=== PATIENT | female | born 1990 | race Caucasian/White ===

== ENCOUNTER 2016-05-26 11:40 | Inpatient (IN) | payer OTHER ==
[~2016-05-26] VITALS: Ht 165.1 cm; Wt 95.4 kg
[~2016-05-26 11:40] MED LIST: ALBUTEROL SULF8.5 GM IH; ANTACID500 MG PO; ATIVAN0.5 MG PO; ATIVAN1 MG PO; BENADRYL ALLERG25 MG PO; BENADRYL50 MG PO; BENZONATATE100 MG PO; CLOTRIMAZOLE15 GM TP; COGENTIN0.5 MG PO; EFFEXOR XR75 MG PO; EFFEXOR75 MG PO; ESKALITH PO; FLONASE16 G1 BOTH NARES; FLOVENT 11120 INHALA IH; HYDROCODON-ACE1 EAC7 PO; HYDROXYZINE PAM25 MG PO; IBUPROFEN800 MG PO; Inderal PO; KEFLEX500 MG PO; LAMICTAL100 MG PO; LAMICTAL200 MG PO; LAMOTRIGINE100 MG PO; LAMOTRIGINE150 MG PO; LAMOTRIGINE200 MG PO; LITHIUM CARBON450 MG PO; LaMICtal PO; MEDI PO; MELATONIN3 MG PO; MULTIVITAMIN1 EAC2 PO; Melatonin PO; Motrin PO; NUVARING VAGIN1 EACH VG; OMEPRAZOLE40 M1 PO; PAIN & FEVER325 MG PO; PANTOPRAZOLE SO40 MG PO; RANITIDINE HCL150 MG PO; RELPAX20 MG PO; RENOVA 0.02% CR40 GM TP; RISPERDAL0.5 MG PO; RISPERDAL2 MG PO; RISPERDAL3 MG PO; RISPERDAL4 MG PO; RISPERIDONE1 MG PO; SEROQUEL100 MG PO; SEROQUEL200 MG PO; SIMPLY SLEEP PO; VENLAFAXINE HCL75 MG PO; VENLAFAXINE225 MG PO; VENTOLIN HFA18 GM IH; ZANTAC150 M1 PO; Zantac PO; risperDAL PO
[2016-05-26 12:22] LABS: HEMATOCRIT 39.7 % (36.0-46.0); MCH 28.8 PG (29.0-34.0); MCHC 32.2 G/DL (30.0-36.0); MCV 89.2 FL (83-99); MEAN PLAT.VOLUME 8.9 uM^3 (9.5-12.4); PLATELET COUNT 243 K/uL (156-360); RBC DIS.WIDTH-SD 41.7 % (39-53); RED BLOOD COUNT 4.45 M/uL (3.80-5.20); WHITE BLOOD COUNT 5.1 K/uL (4.1-10.2)
[2016-05-26 12:37] LABS: CHLORIDE 108 mEq/L (99-109); SODIUM 141 mEq/L (136-147)
[2016-05-26 12:39] LABS: GLUCOSE 97 mg/dL (70-99)
[2016-05-26 12:40] LABS: ANION GAP 6 MEQ/L (2-14)
[2016-05-26 12:42] LABS: GFR ESTIMATE (CALCULATED) > 59 mL/min/; SERUM ETHYL ALCOHOL < 10 mg/dL
[2016-05-26 12:43] LABS: UREA NITROGEN (BUN) 10 mg/dL (9-23)
[2016-05-26 13:44] LABS: AMPHETAMINE NEGATIVE (500 ng/mL); BARBITURATES NEGATIVE (200 ng/mL); BENZODIAZEPINES PRESUMPTIVE POSITIVE (150 ng/mL); COCAINE NEGATIVE (150 ng/mL); INTERNAL CONTROLS VALID? YES; METHADONE NEGATIVE (200 ng/mL); METHAMPHETAMINE NEGATIVE (500 ng/mL); OPIATES (MORPHINE) NEGATIVE (100 ng/mL); OXYCODONE NEGATIVE (100 ng/mL); PHENCYCLIDINE NEGATIVE (25 ng/mL); PROPOXYPHENE NEGATIVE (300 ng/mL); THC CANNABINOIDS NEGATIVE (50 ng/mL); TRICYCLIC ANTIDEPRESSANTS PRESUMPTIVE POSITIVE (300 ng/mL)
[2016-05-26 13:45] LABS: ADD MEDTOX COMMENT Y
[2016-05-26 15:49] LABS: BENZODIAZEPINES QUANT VALUE 0 NG/ML
[2016-05-26 15:51] LABS: BENZODIAZEPINES, URINE SCREEN Negative (200 ng/mL)
[2016-05-26] MEDS ORDERED: OMEPRAZOLE40 M1 PO (16:13)
[2016-05-26] MEDS ORDERED: ATIVAN0.5 MG PO (16:14)
[2016-05-26] MEDS ORDERED: LORAZEPAM0.5 MG PO (16:15)
[2016-05-26] MEDS ORDERED: LITHIUM CARBON300 M2 PO (16:16)
[2016-05-26] MEDS ORDERED: TRETINOIN20 GM TP (16:24)
[2016-05-26] MEDS ORDERED: TUMS500 MG PO (16:29)
[2016-05-26] MEDS ORDERED: DOXYCYCLINE HYC50 MG PO (16:31)
[2016-05-26] MEDS ORDERED: LITHIUM CARBON450 MG PO (16:32)
[2016-05-26 16:34] VITALS: BP 160/103
[2016-05-26] MEDS ORDERED: DEPAKOTE500 MG PO (16:36)
[2016-05-26] MEDS ORDERED: NASACORT10.8 ML BOTH NARES (16:37)
[2016-05-26 16:39] VITALS: BP 160/103
[2016-05-26] MEDS ORDERED: BIOTIN1000 MCG PO (16:41)
[2016-05-26] MEDS ORDERED: VENTOLIN HFA18 GM IH (16:42)
[2016-05-27 08:09] VITALS: BP 120/79
[2016-05-27 15:04] VITALS: BP 128/89
[2016-05-28 07:39] VITALS: BP 121/70
[2016-05-28 15:34] VITALS: BP 138/88
[2016-05-29 08:05] VITALS: BP 127/76
[2016-05-29 15:08] VITALS: BP 138/107
[2016-05-30 07:40] VITALS: BP 127/79
[2016-05-30] MEDS ORDERED: QUETIAPINE FUMA50 MG PO (11:35)
== END 2016-05-30 14:30 | disposition home or self-care (01) | DRG 885 ==
LOC: EME 11:40 → 1WEST 13:20 → EDOF 13:20 → 1WEST 16:28
PROVIDERS: Emergency Medicine
DX: F31.9 Bipolar disorder, unspecified (principal); F60.3 Borderline personality disorder; S70.312A Abrasion, left thigh, initial encounter; X78.8XXA Intentional self-harm by other sharp object, initial encounter; Y92.199 Unspecified place in other specified residential institution as the place of occurrence of the external cause; K21.9 Gastro-esophageal reflux disease without esophagitis; J45.909 Unspecified asthma, uncomplicated; E66.9 Obesity, unspecified
CPT/HCPCS: 80048; 84999; 85027; 90837; 94640; 94640 76; 97150 GO; 97165 GO; 99202; 99281; 99285; G0480

== ENCOUNTER 2016-10-12 12:53 | Emergency (ER) | payer OTHER ==
[~2016-10-12] VITALS: Ht 157.5 cm; Wt 106.5 kg
[~2016-10-12 12:53] MED LIST changes: +BIOTIN1000 MCG PO; +DEPAKOTE500 MG PO; +DOXYCYCLINE HYC50 MG PO; +LITHIUM CARBON300 M2 PO; +LORAZEPAM0.5 MG PO; +NASACORT10.8 ML BOTH NARES; +QUETIAPINE FUMA50 MG PO; +TRETINOIN20 GM TP; +TUMS500 MG PO
[2016-10-12 14:31] LABS: ADD MEDTOX COMMENT Y; AMPHETAMINE NEGATIVE (500 ng/mL); BARBITURATES NEGATIVE (200 ng/mL); BENZODIAZEPINES PRESUMPTIVE POSITIVE (150 ng/mL); COCAINE NEGATIVE (150 ng/mL); INTERNAL CONTROLS VALID? YES; METHADONE NEGATIVE (200 ng/mL); METHAMPHETAMINE NEGATIVE (500 ng/mL); OPIATES (MORPHINE) NEGATIVE (100 ng/mL); OXYCODONE NEGATIVE (100 ng/mL); PHENCYCLIDINE NEGATIVE (25 ng/mL); PROPOXYPHENE NEGATIVE (300 ng/mL); THC CANNABINOIDS NEGATIVE (50 ng/mL); TRICYCLIC ANTIDEPRESSANTS NEGATIVE (300 ng/mL)
[2016-10-12 15:12] LABS: BENZODIAZEPINES QUANT VALUE 0 NG/ML; BENZODIAZEPINES, URINE SCREEN Negative (200 ng/mL)
[2016-10-12 16:39] VITALS: BP 141/89
== END 2016-10-12 16:59 | disposition home or self-care (01) ==
LOC: EME 12:53
PROVIDERS: Emergency Medicine
DX: F31.30 Bipolar disorder, current episode depressed, mild or moderate severity, unspecified (principal); K21.9 Gastro-esophageal reflux disease without esophagitis
CPT/HCPCS: 84999; 90837; 99281; 99285; G0480

== ENCOUNTER 2017-01-15 18:13 | Inpatient (IN) | payer OTHER ==
[~2017-01-15] VITALS: Ht 165.1 cm; Wt 110.1 kg
[2017-01-15 21:42] LABS: HEMATOCRIT 37.1 % (36.0-46.0); MCH 28.2 PG (29.0-34.0); MCHC 31.5 G/DL (30.0-36.0); MCV 89.4 FL (83-99); MEAN PLAT.VOLUME 8.5 uM^3 (9.5-12.4); PLATELET COUNT 281 K/uL (156-360); RBC DIS.WIDTH-SD 42.4 % (39-53); RED BLOOD COUNT 4.15 M/uL (3.80-5.20); WHITE BLOOD COUNT 9.1 K/uL (4.1-10.2)
[2017-01-15 21:53] LABS: CHLORIDE 103 mEq/L (99-109); POTASSIUM 3.8 mEq/L (3.7-5.4); SODIUM 138 mEq/L (136-147)
[2017-01-15 21:54] LABS: GLUCOSE 121 mg/dL (70-99)
[2017-01-15 21:56] LABS: ANION GAP 13 MEQ/L (2-14)
[2017-01-15 21:57] LABS: SERUM ETHYL ALCOHOL < 10 mg/dL
[2017-01-15 21:58] LABS: GFR ESTIMATE (CALCULATED) > 59 mL/min/
[2017-01-15 22:00] LABS: UREA NITROGEN (BUN) 8 mg/dL (9-23)
[2017-01-15 22:01] LABS: SALICYLATE < 5.0 MG/DL (15-30)
[2017-01-15 22:51] LABS: AMPHETAMINE NEGATIVE (500 ng/mL); BARBITURATES NEGATIVE (200 ng/mL); BENZODIAZEPINES PRESUMPTIVE POSITIVE (150 ng/mL); COCAINE NEGATIVE (150 ng/mL); INTERNAL CONTROLS VALID? YES; METHADONE NEGATIVE (200 ng/mL); METHAMPHETAMINE NEGATIVE (500 ng/mL); OPIATES (MORPHINE) NEGATIVE (100 ng/mL); OXYCODONE NEGATIVE (100 ng/mL); PHENCYCLIDINE NEGATIVE (25 ng/mL); PROPOXYPHENE NEGATIVE (300 ng/mL); THC CANNABINOIDS NEGATIVE (50 ng/mL); TRICYCLIC ANTIDEPRESSANTS NEGATIVE (300 ng/mL)
[2017-01-15 22:52] LABS: ADD MEDTOX COMMENT Y
[2017-01-16 00:23] LABS: QUANTITATIVE HCG < 4.0 MIU/ML
[2017-01-16 03:28] LABS: BENZODIAZEPINES QUANT VALUE 0 NG/ML; BENZODIAZEPINES, URINE SCREEN Negative (200 ng/mL)
[2017-01-16 04:09] VITALS: BP 171/118
[2017-01-16 08:02] VITALS: BP 173/109
[2017-01-16 11:41] VITALS: BP 164/98
[2017-01-16 15:48] VITALS: BP 165/115
[2017-01-17 07:43] VITALS: BP 125/78
[2017-01-17] MEDS ORDERED: INDERAL20 MG PO (09:18)
[2017-01-17] MEDS ORDERED: QUETIAPINE FUM300 MG PO (09:18)
== END 2017-01-17 11:10 | disposition home or self-care (01) | DRG 885 ==
LOC: EME 18:13 → EDOF 01-16 00:24 → 1WEST 01-16 00:24 → ENRESERV 01-16 03:49 → 1WEST 01-16 04:00
PROVIDERS: Emergency Medicine
DX: F31.9 Bipolar disorder, unspecified (principal); R45.851 Suicidal ideations; K21.9 Gastro-esophageal reflux disease without esophagitis; E66.01 Morbid (severe) obesity due to excess calories; R41.83 Borderline intellectual functioning; Z68.41 Body mass index [BMI] 40.0-44.9, adult; F60.9 Personality disorder, unspecified
CPT/HCPCS: 80048; 80164; 80178; 84702; 84999; 85027; 90839; 94640; 94640 76; 99202; 99281; 99285; G0480; J2405

== ENCOUNTER 2017-02-10 14:37 | Emergency (ER) | payer OTHER ==
[~2017-02-10] VITALS: Ht 165.1 cm; Wt 107.4 kg
[~2017-02-10 14:37] MED LIST changes: +DIMENHYDRINATE50 MG PO; +INDERAL20 MG PO; -LORAZEPAM0.5 MG PO; +PEPCID AC10 MG PO; +QUETIAPINE FUM300 MG PO; +VENLAFAXINE HCL75 M3 PO
[2017-02-10 16:41] VITALS: BP 132/76
== END 2017-02-10 16:42 | disposition home or self-care (01) ==
LOC: EME 14:37
DX: K59.00 Constipation, unspecified (principal); R11.2 Nausea with vomiting, unspecified; R35.0 Frequency of micturition; R82.99 Other abnormal findings in urine; Z98.51 Tubal ligation status; J45.909 Unspecified asthma, uncomplicated
CPT/HCPCS: 74020; 99281; 99284

== ENCOUNTER 2017-02-16 15:06 | Inpatient (IN) | payer OTHER ==
[~2017-02-16] VITALS: Ht 157.5 cm; Wt 106.1 kg
[2017-02-16 15:51] LABS: MCH 27.9 PG (29.0-34.0); MCHC 31.3 G/DL (30.0-36.0); MEAN PLAT.VOLUME 8.9 uM^3 (9.5-12.4); PLATELET COUNT 294 K/uL (156-360); RBC DIS.WIDTH-CV 12.3 % (11.8-14.6); RBC DIS.WIDTH-SD 39.9 % (39-53); RED BLOOD COUNT 4.27 M/uL (3.80-5.20); WHITE BLOOD COUNT 8.1 K/uL (4.1-10.2)
[2017-02-16 16:00] LABS: CHLORIDE 106 mEq/L (99-109); POTASSIUM 3.8 mEq/L (3.7-5.4); SODIUM 140 mEq/L (136-147)
[2017-02-16 16:03] LABS: GLUCOSE 89 mg/dL (70-99)
[2017-02-16 16:04] LABS: ANION GAP 9 MEQ/L (2-14); TOTAL BILIRUBIN 0.2 mg/dL (0.0-1.0)
[2017-02-16 16:06] LABS: GFR ESTIMATE (CALCULATED) > 59 mL/min/
[2017-02-16 16:07] LABS: ALKALINE PHOSPHATASE 56 IU/L (3-129)
[2017-02-16 16:08] LABS: UREA NITROGEN (BUN) 10 mg/dL (9-23)
[2017-02-16 16:10] LABS: SALICYLATE < 5.0 MG/DL (15-30)
[2017-02-16 16:16] LABS: QUANTITATIVE HCG < 4.0 MIU/ML
[2017-02-16 17:54] LABS: AMPHETAMINE NEGATIVE (500 ng/mL); BARBITURATES NEGATIVE (200 ng/mL); BENZODIAZEPINES PRESUMPTIVE POSITIVE (150 ng/mL); COCAINE NEGATIVE (150 ng/mL); INTERNAL CONTROLS VALID? YES; METHADONE NEGATIVE (200 ng/mL); METHAMPHETAMINE NEGATIVE (500 ng/mL); OPIATES (MORPHINE) NEGATIVE (100 ng/mL); OXYCODONE NEGATIVE (100 ng/mL); PHENCYCLIDINE NEGATIVE (25 ng/mL); PROPOXYPHENE NEGATIVE (300 ng/mL); THC CANNABINOIDS NEGATIVE (50 ng/mL); TRICYCLIC ANTIDEPRESSANTS NEGATIVE (300 ng/mL)
[2017-02-16 17:55] LABS: ADD MEDTOX COMMENT Y
[2017-02-16 18:19] LABS: BENZODIAZEPINES QUANT VALUE 0 NG/ML; BENZODIAZEPINES, URINE SCREEN Negative (200 ng/mL)
[2017-02-16 19:55] VITALS: BP 123/64
[2017-02-16] MEDS ORDERED: INDERAL40 MG PO (22:17)
[2017-02-16] MEDS ORDERED: LITHIUM CARBON450 MG PO (22:19)
[2017-02-16] MEDS ORDERED: RISPERDAL4 MG PO (22:21)
[2017-02-16] MEDS ORDERED: EFFEXOR XR75 MG PO (22:22)
[2017-02-16] MEDS ORDERED: BENZTROPINE ME0.5 MG PO (22:26)
[2017-02-16] MEDS ORDERED: ATIVAN1 MG PO (22:27)
[2017-02-16] MEDS ORDERED: VYVANSE20 MG PO (22:29)
[2017-02-16] MEDS ORDERED: SEROQUEL200 MG PO (22:30)
[2017-02-16] MEDS ORDERED: DELSYM30 MG/5 M1 PO (22:32)
[2017-02-16] MEDS ORDERED: VENTOLIN HFA18 GM IH (22:34)
[2017-02-16] MEDS ORDERED: OMEPRAZOLE40 M1 PO (22:35)
[2017-02-16] MEDS ORDERED: NASACORT10.8 ML BOTH NARES (22:36)
[2017-02-16] MEDS ORDERED: FLOVENT DISKUS1 DISK IH (22:38)
[2017-02-16] MEDS ORDERED: BIOTIN1000 MCG PO (22:38)
[2017-02-16] MEDS ORDERED: ONCE DAILY1 EACH PO (22:40)
[2017-02-16] MEDS ORDERED: AVITA20 GM TP (22:42)
[2017-02-16] MEDS ORDERED: PEPCID AC10 MG PO (22:43)
[2017-02-16] MEDS ORDERED: ACETAMINOPHEN325 M1 PO (22:44)
[2017-02-16] MEDS ORDERED: TUMS500 MG PO (22:45)
[2017-02-16] MEDS ORDERED: DIMENHYDRINATE50 MG PO (22:46)
[2017-02-16 23:54] VITALS: BP 135/79
[2017-02-17 03:40] VITALS: BP 130/81
[2017-02-17 06:43] LABS: HEMATOCRIT 39.1 % (36.0-46.0); MCH 27.4 PG (29.0-34.0); MCHC 30.4 G/DL (30.0-36.0); MCV 89.9 FL (83-99); MEAN PLAT.VOLUME 8.9 uM^3 (9.5-12.4); PLATELET COUNT 288 K/uL (156-360); RBC DIS.WIDTH-CV 12.3 % (11.8-14.6); RBC DIS.WIDTH-SD 40.5 % (39-53); RED BLOOD COUNT 4.35 M/uL (3.80-5.20); WHITE BLOOD COUNT 6.8 K/uL (4.1-10.2)
[2017-02-17 07:05] LABS: ANION GAP 8 MEQ/L (2-14); CHLORIDE 108 MEQ/L (99-109); GFR ESTIMATE (CALCULATED) > 59 mL/min/; GLUCOSE 86 mg/dL (70-99); POTASSIUM 4.6 MEQ/L (3.7-5.4); SAMPLE HEMOLYSIS CHECK 0; SAMPLE ICTERIC CHECK 0; SAMPLE LIPEMIA CHECK 0; SODIUM 143 MEQ/L (136-147); UREA NITROGEN (BUN) 11 mg/dL (9-23)
[2017-02-17 08:00] VITALS: BP 172/101
[2017-02-17 09:00] VITALS: BP 152/94
[2017-02-17] MEDS ORDERED: LITHIUM CARBON300 M2 PO (16:37)
[2017-02-17] MEDS ORDERED: DEPAKOTE500 MG PO (16:37)
[2017-02-17 17:04] VITALS: BP 158/92
[2017-02-17] MEDS ORDERED: EFFEXOR XR75 MG PO (17:54)
[2017-02-18 08:13] VITALS: BP 163/98
[2017-02-18 15:54] VITALS: BP 139/96
[2017-02-18 23:29] VITALS: BP 120/67
[2017-02-19 08:10] VITALS: BP 159/101
[2017-02-19 16:04] VITALS: BP 161/96
[2017-02-19 23:58] VITALS: BP 130/69
[2017-02-20 08:34] VITALS: BP 150/80
== END 2017-02-20 17:29 | disposition home or self-care (01) | DRG 394 ==
LOC: EME 15:06 → ENRESERV 18:25 → 3EAST 18:35 → 2SOUTH 18:35 → 3EAST 19:03
PROVIDERS: Hospitalist; Physician Assistant
PROC: 0DJ08ZZ Inspection of Upper Intestinal Tract, Via Natural or Artificial Opening Endoscopic (ICD-10-PCS; principal; 2017-02-16)
DX: T18.2XXA Foreign body in stomach, initial encounter (principal); R45.851 Suicidal ideations; F31.9 Bipolar disorder, unspecified; Z68.41 Body mass index [BMI] 40.0-44.9, adult; F60.3 Borderline personality disorder; F79 Unspecified intellectual disabilities; K21.9 Gastro-esophageal reflux disease without esophagitis; E66.9 Obesity, unspecified; F41.9 Anxiety disorder, unspecified; G43.909 Migraine, unspecified, not intractable, without status migrainosus; J45.909 Unspecified asthma, uncomplicated; Z98.51 Tubal ligation status; Z81.8 Family history of other mental and behavioral disorders
CPT/HCPCS: 74000; 80048; 80053; 84702; 84999; 85027; 99281; 99285; G0480; J0330; J0360; J1650; J2405; J3010; S0028

== ENCOUNTER 2017-03-20 12:27 | Inpatient (IN) | payer OTHER ==
[~2017-03-20] VITALS: Ht 165.1 cm; Wt 107.5 kg
[~2017-03-20 12:27] MED LIST changes: +ACETAMINOPHEN325 M1 PO; +AVITA20 GM TP; +BENZTROPINE ME0.5 MG PO; +DELSYM30 MG/5 M1 PO; +FLOVENT DISKUS1 DISK IH; +INDERAL40 MG PO; +ONCE DAILY1 EACH PO; +VYVANSE20 MG PO
[2017-03-20 13:08] LABS: HEMATOCRIT 38.7 % (36.0-46.0); MCH 27.8 PG (29.0-34.0); MCHC 31.3 G/DL (30.0-36.0); MEAN PLAT.VOLUME 8.9 uM^3 (9.5-12.4); PLATELET COUNT 343 K/uL (156-360); RBC DIS.WIDTH-SD 42.4 % (39-53); RED BLOOD COUNT 4.35 M/uL (3.80-5.20); WHITE BLOOD COUNT 8.7 K/uL (4.1-10.2)
[2017-03-20 13:20] LABS: CHLORIDE 108 mEq/L (99-109); POTASSIUM 4.3 mEq/L (3.7-5.4); SODIUM 139 mEq/L (136-147)
[2017-03-20 13:22] LABS: GLUCOSE 75 mg/dL (70-99)
[2017-03-20 13:23] LABS: ANION GAP 9 MEQ/L (2-14)
[2017-03-20 13:24] LABS: TOTAL BILIRUBIN 0.3 mg/dL (0.0-1.0)
[2017-03-20 13:25] LABS: SERUM ETHYL ALCOHOL < 10 mg/dL
[2017-03-20 13:26] LABS: ALKALINE PHOSPHATASE 58 IU/L (3-129); GFR ESTIMATE (CALCULATED) > 59 mL/min/
[2017-03-20 13:27] LABS: UREA NITROGEN (BUN) 9 mg/dL (9-23)
[2017-03-20 13:34] LABS: QUANTITATIVE HCG < 4.0 MIU/ML
[2017-03-20 15:17] LABS: ADD MIUA? NO; BILIRUBIN NEGATIVE; BLOOD NEGATIVE; COLOR COLORLESS ((YELLOW)); GLUCOSE (STRIP) NEGATIVE; KETONES NEGATIVE; LEUKOCYTES NEGATIVE; NITRITE NEGATIVE; PROTEIN (STRIP) NEGATIVE; SPECIFIC GRAVITY 1.004 (1.000-1.030); UROBILINOGEN 0.2 MG/DL (0.2-1.0)
[2017-03-20 15:24] LABS: PHENCYCLIDINE NEGATIVE (25 ng/mL)
[2017-03-20 15:25] LABS: ADD MEDTOX COMMENT Y; AMPHETAMINE PRESUMPTIVE POSITIVE (500 ng/mL); BARBITURATES NEGATIVE (200 ng/mL); BENZODIAZEPINES PRESUMPTIVE POSITIVE (150 ng/mL); COCAINE NEGATIVE (150 ng/mL); INTERNAL CONTROLS VALID? YES; METHADONE NEGATIVE (200 ng/mL); METHAMPHETAMINE NEGATIVE (500 ng/mL); OPIATES (MORPHINE) NEGATIVE (100 ng/mL); OXYCODONE NEGATIVE (100 ng/mL); PROPOXYPHENE NEGATIVE (300 ng/mL); THC CANNABINOIDS NEGATIVE (50 ng/mL); TRICYCLIC ANTIDEPRESSANTS PRESUMPTIVE POSITIVE (300 ng/mL)
[2017-03-20 15:54] LABS: AMPHETAMINES QUANT VALUE 0 NG/ML; BENZODIAZEPINES QUANT VALUE 0 NG/ML; BENZODIAZEPINES, URINE SCREEN Negative (200 ng/mL)
[2017-03-20 22:35] VITALS: BP 137/71
[2017-03-21 07:57] VITALS: BP 137/83
[2017-03-21 15:28] VITALS: BP 160/96
[2017-03-22 07:48] VITALS: BP 121/66
== END 2017-03-22 13:12 | disposition home or self-care (01) | DRG 395 ==
LOC: EME → EDBD 12:27 → EME 12:27 → EDOF 21:04 → 1WEST 21:04 → ENRESERV 22:13 → 1WEST 22:24
PROVIDERS: Emergency Medicine
PROC: 0DC68ZZ Extirpation of Matter from Stomach, Via Natural or Artificial Opening Endoscopic (ICD-10-PCS; principal; 2017-03-20)
DX: T18.2XXA Foreign body in stomach, initial encounter (principal); F25.0 Schizoaffective disorder, bipolar type; F79 Unspecified intellectual disabilities; F60.3 Borderline personality disorder; K21.9 Gastro-esophageal reflux disease without esophagitis; F41.9 Anxiety disorder, unspecified; J45.909 Unspecified asthma, uncomplicated; I10 Essential (primary) hypertension; Z68.39 Body mass index [BMI] 39.0-39.9, adult; Z98.51 Tubal ligation status; Z91.5 Personal history of self-harm
CPT/HCPCS: 71020; 74000; 74020; 80053; 80164; 80178; 81003; 84702; 84999; 85027; 90839; 94640; 97150 GO; 99202; 99281; 99285; G0480; J0330; J1100; J2405; J3010; J7030

== ENCOUNTER 2017-03-30 14:13 | Emergency (ER) | payer OTHER ==
[~2017-03-30] VITALS: Ht 165.1 cm; Wt 107.9 kg
[2017-03-30 15:15] LABS: AMPHETAMINE NEGATIVE (500 ng/mL); BARBITURATES NEGATIVE (200 ng/mL); BENZODIAZEPINES PRESUMPTIVE POSITIVE (150 ng/mL); BUPRENORPHINE NEGATIVE (10 ng/mL); COCAINE NEGATIVE (150 ng/mL); METHADONE NEGATIVE (200 ng/mL); METHAMPHETAMINE NEGATIVE (500 ng/mL); OPIATES (MORPHINE) NEGATIVE (100 ng/mL); OXYCODONE NEGATIVE (100 ng/mL); PHENCYCLIDINE NEGATIVE (25 ng/mL); PROPOXYPHENE NEGATIVE (300 ng/mL); THC CANNABINOIDS NEGATIVE (50 ng/mL); TRICYCLIC ANTIDEPRESSANTS PRESUMPTIVE POSITIVE (300 ng/mL)
[2017-03-30 15:45] LABS: HEMATOCRIT 35.8 % (36.0-46.0); HEMOGLOBIN 11.3 G/DL (11.9-15.5); MCHC 31.6 G/DL (30.0-36.0); MCV 88.6 FL (83-99); PLATELET COUNT 335 K/uL (156-360); RBC DIS.WIDTH-CV 12.8 % (11.8-14.6); RBC DIS.WIDTH-SD 41.2 % (39-53); RED BLOOD COUNT 4.04 M/uL (3.80-5.20); WHITE BLOOD COUNT 9.2 K/uL (4.1-10.2)
[2017-03-30 15:53] LABS: CHLORIDE 108 mEq/L (99-109); POTASSIUM 4.5 mEq/L (3.7-5.4); SODIUM 137 mEq/L (136-147)
[2017-03-30 15:55] LABS: GLUCOSE 94 mg/dL (70-99)
[2017-03-30 15:58] LABS: CREATININE 1.4 mg/dL (0.6-1.3); GFR ESTIMATE (CALCULATED) 48 mL/min/; SERUM ETHYL ALCOHOL < 10 mg/dL
[2017-03-30 15:59] LABS: UREA NITROGEN (BUN) 15 mg/dL (9-23)
[2017-03-30 15:59] LABS: BENZODIAZEPINES, URINE SCREEN Negative (200 ng/mL)
[2017-03-30] MEDS ORDERED: ATIVAN1 MG PO (18:00)
[2017-03-30 18:58] VITALS: BP 123/71
== END 2017-03-30 19:01 | disposition home or self-care (01) ==
LOC: EME 14:13
PROVIDERS: Emergency Medicine Emergency Medical Services
DX: F25.0 Schizoaffective disorder, bipolar type (principal); R44.0 Auditory hallucinations; F60.3 Borderline personality disorder; R41.83 Borderline intellectual functioning; K21.9 Gastro-esophageal reflux disease without esophagitis; J45.909 Unspecified asthma, uncomplicated; I10 Essential (primary) hypertension; F41.9 Anxiety disorder, unspecified; Z97.5 Presence of (intrauterine) contraceptive device
CPT/HCPCS: 80048; 84999; 85027; 90837; 99281; 99285; G0480

== ENCOUNTER 2017-04-16 08:36 | Inpatient (IN) | payer OTHER ==
[~2017-04-16] VITALS: Ht 165.1 cm; Wt 111.3 kg
[2017-04-16 09:26] LABS: BASOPHIL (%) 0.4 % (0-1); EOSINOPHIL (%) 3.2 % (0-5); EOSINOPHIL COUNT 0.4 K/uL (0-0.3); HEMATOCRIT 38.5 % (36.0-46.0); HEMOGLOBIN 11.6 G/DL (11.9-15.5); IMMATURE GRANULOCYTE (%) 0.4 % (0.0-0.7); LYMPHOCYTE (%) 20.9 % (15-42); LYMPHOCYTE COUNT 2.3 K/uL (1.0-2.8); MCH 27.6 PG (29.0-34.0); MCHC 30.1 G/DL (30.0-36.0); MCV 91.4 FL (83-99); MONOCYTE (%) 5.7 % (3-12); MONOCYTE COUNT 0.6 K/uL (0-0.8); NEUTROPHIL (%) 69.4 % (45-76); NEUTROPHIL COUNT 7.6 K/uL (1.8-6.4); PLATELET COUNT 320 K/uL (156-360); RBC DIS.WIDTH-CV 13.4 % (11.8-14.6); RBC DIS.WIDTH-SD 45.6 % (39-53); RED BLOOD COUNT 4.21 M/uL (3.80-5.20)
[2017-04-16 09:41] LABS: ALBUMIN 4.3 g/dL (3.2-4.8); CHLORIDE 111 mEq/L (99-109); POTASSIUM 5.9 mEq/L (3.7-5.4); SODIUM 136 mEq/L (136-147)
[2017-04-16 09:43] LABS: GLUCOSE 70 mg/dL (70-99)
[2017-04-16 09:44] LABS: TOTAL PROTEIN 7.7 g/dL (6.4-8.3)
[2017-04-16 09:45] LABS: TOTAL BILIRUBIN 0.3 mg/dL (0.0-1.0)
[2017-04-16 09:46] LABS: SERUM ETHYL ALCOHOL < 10 mg/dL
[2017-04-16 09:47] LABS: CREATININE 3.5 mg/dL (0.6-1.3); GFR ESTIMATE (CALCULATED) 17 mL/min/
[2017-04-16 09:48] LABS: ALKALINE PHOSPHATASE 111 IU/L (3-129)
[2017-04-16 09:49] LABS: AST (GOT) 12 IU/L (2-34); DIRECT BILIRUBIN 0.1 mg/dL (0.0-0.3); UREA NITROGEN (BUN) 43 mg/dL (9-23)
[2017-04-16 09:49] LABS: APPEARANCE CLEAR ((CLEAR)); BILIRUBIN NEGATIVE; BLOOD SMALL; COLOR STRAW ((YELLOW)); GLUCOSE (STRIP) NEGATIVE; KETONES NEGATIVE; LEUKOCYTES NEGATIVE; NITRITE NEGATIVE; PROTEIN (STRIP) NEGATIVE; SPECIFIC GRAVITY 1.009 (1.000-1.030); UROBILINOGEN 0.2 MG/DL (0.2-1.0)
[2017-04-16 09:51] LABS: ACETAMINOPHEN (TYLENOL) < 10 mcg/mL (10-30); ALT (GPT) 15 IU/L (3-49); SALICYLATE < 5.0 MG/DL (15-30)
[2017-04-16 09:59] LABS: QUANTITATIVE HCG < 4.0 MIU/ML
[2017-04-16 09:59] LABS: AMPHETAMINE NEGATIVE (500 ng/mL); BARBITURATES NEGATIVE (200 ng/mL); BENZODIAZEPINES PRESUMPTIVE POSITIVE (150 ng/mL); BUPRENORPHINE NEGATIVE (10 ng/mL); COCAINE NEGATIVE (150 ng/mL); METHADONE NEGATIVE (200 ng/mL); METHAMPHETAMINE NEGATIVE (500 ng/mL); OPIATES (MORPHINE) NEGATIVE (100 ng/mL); OXYCODONE NEGATIVE (100 ng/mL); PHENCYCLIDINE NEGATIVE (25 ng/mL); PROPOXYPHENE NEGATIVE (300 ng/mL); THC CANNABINOIDS NEGATIVE (50 ng/mL); TRICYCLIC ANTIDEPRESSANTS PRESUMPTIVE POSITIVE (300 ng/mL)
[2017-04-16 10:06] LABS: BACTERIA RARE /HPF; EPITHELIAL CELLS NONE SEEN /HPF; MUCUS NONE SEEN /LPF; RED BLOOD CELLS 0-5 /HPF (0-5); WHITE BLOOD CELLS 0-5 /HPF (0-5)
[2017-04-16 10:37] LABS: BENZODIAZEPINES, URINE SCREEN Negative (200 ng/mL)
[2017-04-16] MEDS ORDERED: ZESTRIL40 MG PO (17:15)
[2017-04-16] MEDS ORDERED: VYVANSE20 MG PO (17:16)
[2017-04-16] MEDS ORDERED: BIOTIN1000 MCG PO (17:16)
[2017-04-16] MEDS ORDERED: DAILY VITE1 EAC1 PO (17:16)
[2017-04-16] MEDS ORDERED: LITHIUM CARBON450 MG PO (17:17)
[2017-04-16] MEDS ORDERED: OMEPRAZOLE40 M1 PO (17:17)
[2017-04-16] MEDS ORDERED: INDERAL60 MG PO (17:17)
[2017-04-16] MEDS ORDERED: COGENTIN0.5 MG PO (17:18)
[2017-04-16] MEDS ORDERED: ATIVAN1 MG PO (17:18)
[2017-04-16] MEDS ORDERED: DEPAKOTE500 MG PO (17:18)
[2017-04-16] MEDS ORDERED: RISPERDAL4 MG PO (17:19)
[2017-04-16] MEDS ORDERED: NASACORT10.8 ML BOTH NARES (17:19)
[2017-04-16] MEDS ORDERED: FLOVENT DISKUS1 DISK IH (17:19)
[2017-04-16] MEDS ORDERED: VENLAFAXINE HCL75 M3 PO (17:19)
[2017-04-16] MEDS ORDERED: SEROQUEL200 MG PO (17:20)
[2017-04-16] MEDS ORDERED: DELSYM30 MG/5 M1 PO (17:21)
[2017-04-16] MEDS ORDERED: VENTOLIN HFA18 GM IH (17:22)
[2017-04-16] MEDS ORDERED: PEPCID AC10 MG PO (17:22)
[2017-04-16] MEDS ORDERED: DIMENHYDRINATE50 MG PO (17:23)
[2017-04-16] MEDS ORDERED: TUMS500 MG PO (17:23)
[2017-04-16] MEDS ORDERED: TYLENOL REGULA325 MG PO (17:24)
[2017-04-16] MEDS ORDERED: RELPAX20 MG PO (17:24)
[2017-04-16 19:55] LABS: CHLORIDE 115 MEQ/L (99-109); GLUCOSE 87 mg/dL (70-99); SODIUM 136 MEQ/L (136-147); UREA NITROGEN (BUN) 37 mg/dL (9-23)
[2017-04-16 19:56] LABS: CREATININE 2.7 MG/DL (0.6-1.3); GFR ESTIMATE (CALCULATED) 22 mL/min/
[2017-04-16 19:57] LABS: POTASSIUM 6.2 MEQ/L (3.7-5.4)
[2017-04-16 23:40] LABS: CHLORIDE 118 mEq/L (99-109); POTASSIUM 5.9 mEq/L (3.7-5.4); SODIUM 137 mEq/L (136-147)
[2017-04-16 23:41] LABS: GLUCOSE 70 mg/dL (70-99)
[2017-04-16 23:46] LABS: GFR ESTIMATE (CALCULATED) 32 mL/min/; UREA NITROGEN (BUN) 29 mg/dL (9-23)
[2017-04-17] VITALS (7 sets, daily range): BP systolic 100–127; BP diastolic 54–79
[2017-04-17 05:55] LABS: HEMATOCRIT 31.2 % (36.0-46.0); MCH 27.5 PG (29.0-34.0); MCHC 30.4 G/DL (30.0-36.0); MCV 90.4 FL (83-99); PLATELET COUNT 301 K/uL (156-360); RBC DIS.WIDTH-CV 13.2 % (11.8-14.6); RBC DIS.WIDTH-SD 44.4 % (39-53); RED BLOOD COUNT 3.45 M/uL (3.80-5.20); WHITE BLOOD COUNT 9.5 K/uL (4.1-10.2)
[2017-04-17 05:58] LABS: HEMOGLOBIN 9.5 G/DL (11.9-15.5)
[2017-04-17 06:20] LABS: ALBUMIN 3.5 G/DL (3.2-4.8); ALKALINE PHOSPHATASE 88 IU/L (3-129); ALT (GPT) 11 IU/L (3-49); AST (GOT) 10 IU/L (2-34); CHLORIDE 114 MEQ/L (99-109); CREATININE 2.1 MG/DL (0.6-1.3); GFR ESTIMATE (CALCULATED) 30 mL/min/; POTASSIUM 5.7 MEQ/L (3.7-5.4); SODIUM 138 MEQ/L (136-147); TOTAL BILIRUBIN 0.2 MG/DL (0.0-1.0); TOTAL PROTEIN 6.2 G/DL (6.4-8.3); UREA NITROGEN (BUN) 29 mg/dL (9-23)
[2017-04-17 06:22] LABS: GLUCOSE 91 mg/dL (70-99)
[2017-04-17 16:15] LABS: CHLORIDE 109 MEQ/L (99-109); CREATININE 1.7 MG/DL (0.6-1.3); GFR ESTIMATE (CALCULATED) 38 mL/min/; GLUCOSE 86 mg/dL (70-99); SODIUM 138 MEQ/L (136-147); UREA NITROGEN (BUN) 22 mg/dL (9-23)
[2017-04-18 03:52] VITALS: BP 108/58
[2017-04-18 06:02] LABS: BASOPHIL (%) 0.5 % (0-1); EOSINOPHIL (%) 3.9 % (0-5); EOSINOPHIL COUNT 0.3 K/uL (0-0.3); HEMATOCRIT 32.9 % (36.0-46.0); HEMOGLOBIN 10.6 G/DL (11.9-15.5); IMMATURE GRANULOCYTE (%) 0.4 % (0.0-0.7); LYMPHOCYTE (%) 39.5 % (15-42); LYMPHOCYTE COUNT 3.4 K/uL (1.0-2.8); MCH 28.8 PG (29.0-34.0); MCHC 32.2 G/DL (30.0-36.0); MCV 89.4 FL (83-99); MONOCYTE (%) 5.3 % (3-12); MONOCYTE COUNT 0.5 K/uL (0-0.8); NEUTROPHIL (%) 50.4 % (45-76); NEUTROPHIL COUNT 4.3 K/uL (1.8-6.4); PLATELET COUNT 307 K/uL (156-360); RBC DIS.WIDTH-CV 12.9 % (11.8-14.6); RBC DIS.WIDTH-SD 42.7 % (39-53); RED BLOOD COUNT 3.68 M/uL (3.80-5.20); WHITE BLOOD COUNT 8.5 K/uL (4.1-10.2)
[2017-04-18 06:18] LABS: CHLORIDE 110 MEQ/L (99-109); POTASSIUM 5.5 MEQ/L (3.7-5.4); SODIUM 139 MEQ/L (136-147)
[2017-04-18 06:26] LABS: CREATININE 1.6 MG/DL (0.6-1.3); GFR ESTIMATE (CALCULATED) 41 mL/min/; GLUCOSE 82 mg/dL (70-99); UREA NITROGEN (BUN) 21 mg/dL (9-23)
[2017-04-18 08:15] VITALS: BP 127/63
[2017-04-18 10:42] LABS: CHLORIDE 109 MEQ/L (99-109); CREATININE 1.6 MG/DL (0.6-1.3); GFR ESTIMATE (CALCULATED) 41 mL/min/; POTASSIUM 4.9 MEQ/L (3.7-5.4); SODIUM 139 MEQ/L (136-147); UREA NITROGEN (BUN) 20 mg/dL (9-23)
[2017-04-18 10:45] LABS: GLUCOSE 110 mg/dL (70-99)
[2017-04-18] MEDS ORDERED: INDERAL40 MG PO (11:10)
[2017-04-18 11:55] VITALS: BP 119/73
== END 2017-04-18 13:41 | DRG 683 ==
LOC: EME 08:36 → 3EAST 11:40 → EDOF 11:40 → ENRESERV 13:14 → 3EAST 04-17 02:56
PROVIDERS: Emergency Medicine; Hospitalist; Nurse Practitioner Adult Health; Psychiatry & Neurology Psychiatry
DX: N17.9 Acute kidney failure, unspecified (principal); R25.1 Tremor, unspecified; T43.595A Adverse effect of other antipsychotics and neuroleptics, initial encounter; E87.5 Hyperkalemia; S81.812A Laceration without foreign body, left lower leg, initial encounter; X78.8XXA Intentional self-harm by other sharp object, initial encounter; F25.0 Schizoaffective disorder, bipolar type; F41.9 Anxiety disorder, unspecified; F60.3 Borderline personality disorder; F79 Unspecified intellectual disabilities; I10 Essential (primary) hypertension; J45.20 Mild intermittent asthma, uncomplicated; K21.9 Gastro-esophageal reflux disease without esophagitis; E66.9 Obesity, unspecified; G43.909 Migraine, unspecified, not intractable, without status migrainosus; Z91.5 Personal history of self-harm; Z68.41 Body mass index [BMI] 40.0-44.9, adult
CPT/HCPCS: 71045; 76770; 80048; 80048 91; 80053; 80076; 80164; 80178; 81003; 82948; 84702; 84999; 85025; 85027; 90839; 93005; 94640; 94640 76; 94760; 99202; 99281; 99283; G0480; J1815; J7030

== ENCOUNTER 2017-04-18 13:02 | Inpatient (IN) | payer OTHER ==
[~2017-04-18] VITALS: Ht 165.1 cm; Wt 111.3 kg
[~2017-04-18 13:02] MED LIST changes: +DAILY VITE1 EAC1 PO; +INDERAL60 MG PO; +TYLENOL REGULA325 MG PO; +ZESTRIL40 MG PO
[2017-04-18 13:59] VITALS: BP 125/75
[2017-04-18 14:02] VITALS: BP 125/75
[2017-04-18 15:43] VITALS: BP 125/75
[2017-04-19 07:50] VITALS: BP 117/70
[2017-04-19 15:59] VITALS: BP 121/72
[2017-04-20 07:54] VITALS: BP 108/66
[2017-04-20 10:49] LABS: ALBUMIN 4.1 G/DL (3.2-4.8); CHLORIDE 107 MEQ/L (99-109); CREATININE 1.5 MG/DL (0.6-1.3); GFR ESTIMATE (CALCULATED) 44 mL/min/; GLUCOSE 139 mg/dL (70-99); PHOSPHORUS 3.3 mg/dL (2.5-4.9); POTASSIUM 4.1 MEQ/L (3.7-5.4); SODIUM 139 MEQ/L (136-147); UREA NITROGEN (BUN) 20 mg/dL (9-23); VALPROIC ACID (DEPAKOTE) 99.3 MCG/ML (50-100)
== END 2017-04-20 11:04 | disposition home or self-care (01) | DRG 885 ==
LOC: 1WEST 13:02
PROVIDERS: Psychiatry & Neurology Psychiatry
DX: F25.0 Schizoaffective disorder, bipolar type (principal); F60.3 Borderline personality disorder; F79 Unspecified intellectual disabilities; R45.851 Suicidal ideations; K21.9 Gastro-esophageal reflux disease without esophagitis; E11.9 Type 2 diabetes mellitus without complications; E66.9 Obesity, unspecified; Z68.41 Body mass index [BMI] 40.0-44.9, adult; Z98.51 Tubal ligation status; Z79.899 Other long term (current) drug therapy
CPT/HCPCS: 80069; 80164; 94640 76; 97150 GO; 97166 GO; 99202

== ENCOUNTER 2017-05-07 17:38 | Emergency (ER) | payer OTHER ==
[~2017-05-07] VITALS: Ht 165.1 cm; Wt 110.9 kg
[2017-05-07 18:52] LABS: APPEARANCE CLEAR ((CLEAR)); BILIRUBIN NEGATIVE; BLOOD SMALL; COLOR YELLOW ((YELLOW)); GLUCOSE (STRIP) NEGATIVE; KETONES NEGATIVE; LEUKOCYTES MODERATE; NITRITE NEGATIVE; PROTEIN (STRIP) NEGATIVE; SPECIFIC GRAVITY 1.011 (1.000-1.030); UROBILINOGEN 0.2 MG/DL (0.2-1.0)
[2017-05-07 18:59] LABS: AMPHETAMINE NEGATIVE (500 ng/mL); BACTERIA NONE SEEN /HPF; BARBITURATES NEGATIVE (200 ng/mL); BENZODIAZEPINES PRESUMPTIVE POSITIVE (150 ng/mL); BUPRENORPHINE NEGATIVE (10 ng/mL); COCAINE NEGATIVE (150 ng/mL); EPITHELIAL CELLS 1+ /HPF; METHADONE NEGATIVE (200 ng/mL); METHAMPHETAMINE NEGATIVE (500 ng/mL); MUCUS TRACE /LPF; OPIATES (MORPHINE) NEGATIVE (100 ng/mL); OXYCODONE NEGATIVE (100 ng/mL); PHENCYCLIDINE NEGATIVE (25 ng/mL); PROPOXYPHENE NEGATIVE (300 ng/mL); RED BLOOD CELLS 0-5 /HPF (0-5); THC CANNABINOIDS NEGATIVE (50 ng/mL); TRICYCLIC ANTIDEPRESSANTS PRESUMPTIVE POSITIVE (300 ng/mL); UCUL ADDED? YES
[2017-05-07 19:11] LABS: HEMATOCRIT 32.5 % (36.0-46.0); HEMOGLOBIN 10.3 G/DL (11.9-15.5); MCH 28.1 PG (29.0-34.0); MCHC 31.7 G/DL (30.0-36.0); MCV 88.8 FL (83-99); PLATELET COUNT 259 K/uL (156-360); RBC DIS.WIDTH-CV 13.8 % (11.8-14.6); RBC DIS.WIDTH-SD 44.7 % (39-53); RED BLOOD COUNT 3.66 M/uL (3.80-5.20); WHITE BLOOD COUNT 6.1 K/uL (4.1-10.2)
[2017-05-07 19:21] LABS: ALBUMIN 3.8 g/dL (3.2-4.8); CHLORIDE 108 mEq/L (99-109); POTASSIUM 5.4 mEq/L (3.7-5.4); SODIUM 139 mEq/L (136-147)
[2017-05-07 19:23] LABS: GLUCOSE 95 mg/dL (70-99)
[2017-05-07 19:24] LABS: TOTAL PROTEIN 6.8 g/dL (6.4-8.3)
[2017-05-07 19:25] LABS: TOTAL BILIRUBIN 0.2 mg/dL (0.0-1.0)
[2017-05-07 19:26] LABS: SERUM ETHYL ALCOHOL < 10 mg/dL
[2017-05-07 19:27] LABS: ALKALINE PHOSPHATASE 63 IU/L (3-129); CREATININE 1.9 mg/dL (0.6-1.3); GFR ESTIMATE (CALCULATED) 34 mL/min/
[2017-05-07 19:28] LABS: UREA NITROGEN (BUN) 30 mg/dL (9-23)
[2017-05-07 19:29] LABS: AST (GOT) 14 IU/L (2-34)
[2017-05-07 19:30] LABS: ALT (GPT) 10 IU/L (3-49)
[2017-05-07 19:37] LABS: BENZODIAZEPINES, URINE SCREEN Negative (200 ng/mL)
[2017-05-07 19:41] LABS: QUANTITATIVE HCG < 4.0 MIU/ML
[2017-05-07] MEDS ORDERED: ZOFRAN4 MG PO (20:43)
[2017-05-07 21:14] VITALS: BP 107/67
== END 2017-05-07 21:15 | disposition home or self-care (01) ==
LOC: EME 17:38
PROVIDERS: Emergency Medicine Emergency Medical Services
DX: J06.9 Acute upper respiratory infection, unspecified (principal); R11.0 Nausea; E86.0 Dehydration; F32.9 Major depressive disorder, single episode, unspecified; J45.909 Unspecified asthma, uncomplicated; F41.9 Anxiety disorder, unspecified; F31.9 Bipolar disorder, unspecified; Z91.5 Personal history of self-harm; Z88.8 Allergy status to other drugs, medicaments and biological substances
CPT/HCPCS: 74018; 80053; 81003; 84702; 84999; 85027; 87086; G0480; J0780

== ENCOUNTER 2017-05-24 16:31 | Inpatient (IN) | payer OTHER ==
[~2017-05-24] VITALS: Ht 165.1 cm; Wt 116.0 kg
[~2017-05-24 16:31] MED LIST changes: +ZOFRAN4 MG PO
[2017-05-24 17:40] LABS: BASOPHIL (%) 0.5 % (0-1); EOSINOPHIL COUNT 0.2 K/uL (0-0.3); HEMATOCRIT 31.7 % (36.0-46.0); HEMOGLOBIN 10.3 G/DL (11.9-15.5); IMMATURE GRANULOCYTE (%) 0.2 % (0.0-0.7); LYMPHOCYTE (%) 39.8 % (15-42); LYMPHOCYTE COUNT 2.4 K/uL (1.0-2.8); MCH 28.6 PG (29.0-34.0); MCHC 32.5 G/DL (30.0-36.0); MCV 88.1 FL (83-99); MONOCYTE (%) 9.8 % (3-12); MONOCYTE COUNT 0.6 K/uL (0-0.8); NEUTROPHIL (%) 46.7 % (45-76); NEUTROPHIL COUNT 2.8 K/uL (1.8-6.4); PLATELET COUNT 279 K/uL (156-360); RBC DIS.WIDTH-CV 14.4 % (11.8-14.6); RBC DIS.WIDTH-SD 45.7 % (39-53)
[2017-05-24 17:49] LABS: CHLORIDE 111 mEq/L (99-109); POTASSIUM 5.1 mEq/L (3.7-5.4); SODIUM 140 mEq/L (136-147)
[2017-05-24 17:51] LABS: GLUCOSE 89 mg/dL (70-99)
[2017-05-24 17:54] LABS: SERUM ETHYL ALCOHOL < 10 mg/dL
[2017-05-24 17:55] LABS: CREATININE 1.6 mg/dL (0.6-1.3); GFR ESTIMATE (CALCULATED) 41 mL/min/
[2017-05-24 17:56] LABS: UREA NITROGEN (BUN) 25 mg/dL (9-23)
[2017-05-24 18:06] LABS: QUANTITATIVE HCG < 4.0 MIU/ML
[2017-05-24 18:13] LABS: APPEARANCE CLEAR ((CLEAR)); BILIRUBIN NEGATIVE; BLOOD SMALL; COLOR YELLOW ((YELLOW)); GLUCOSE (STRIP) NEGATIVE; KETONES NEGATIVE; LEUKOCYTES MODERATE; NITRITE NEGATIVE; PROTEIN (STRIP) NEGATIVE; SPECIFIC GRAVITY 1.008 (1.000-1.030); UROBILINOGEN 0.2 MG/DL (0.2-1.0)
[2017-05-24 18:24] LABS: BACTERIA RARE /HPF; EPITHELIAL CELLS RARE /HPF; MUCUS TRACE /LPF; RED BLOOD CELLS 0-5 /HPF (0-5)
[2017-05-24 18:37] LABS: AMPHETAMINE NEGATIVE (500 ng/mL); BARBITURATES NEGATIVE (200 ng/mL); BENZODIAZEPINES PRESUMPTIVE POSITIVE (150 ng/mL); BUPRENORPHINE NEGATIVE (10 ng/mL); COCAINE NEGATIVE (150 ng/mL); METHADONE NEGATIVE (200 ng/mL); METHAMPHETAMINE NEGATIVE (500 ng/mL); OPIATES (MORPHINE) NEGATIVE (100 ng/mL); OXYCODONE NEGATIVE (100 ng/mL); PHENCYCLIDINE NEGATIVE (25 ng/mL); PROPOXYPHENE NEGATIVE (300 ng/mL); THC CANNABINOIDS NEGATIVE (50 ng/mL); TRICYCLIC ANTIDEPRESSANTS PRESUMPTIVE POSITIVE (300 ng/mL)
[2017-05-24 19:01] LABS: BENZODIAZEPINES, URINE SCREEN Negative (200 ng/mL)
[2017-05-24] MEDS ORDERED: ATIVAN1 MG PO (20:45)
[2017-05-24] MEDS ORDERED: INDERAL60 MG PO (20:46)
[2017-05-24] MEDS ORDERED: TAMIFLU30 MG PO (20:47)
[2017-05-24] MEDS ORDERED: LISINOPRIL40 MG PO (20:47)
[2017-05-24] MEDS ORDERED: TESSALON PERLE100 MG PO (20:47)
[2017-05-24] MEDS ORDERED: RELPAX20 MG PO (20:47)
[2017-05-24] MEDS ORDERED: DAILY VITE1 EAC1 PO (20:48)
[2017-05-24] MEDS ORDERED: BIOTIN1000 MICRO PO (20:48)
[2017-05-24] MEDS ORDERED: NASACORT10.8 ML BOTH NARES (20:48)
[2017-05-24] MEDS ORDERED: AVITA20 GM TP (20:49)
[2017-05-24] MEDS ORDERED: TUMS500 MG PO (20:50)
[2017-05-24 23:35] LABS: ALBUMIN 3.9 g/dL (3.2-4.8)
[2017-05-24 23:38] LABS: TOTAL PROTEIN 7.1 g/dL (6.4-8.3)
[2017-05-24 23:39] LABS: TOTAL BILIRUBIN 0.1 mg/dL (0.0-1.0)
[2017-05-24 23:41] LABS: ALKALINE PHOSPHATASE 55 IU/L (3-129)
[2017-05-24 23:43] LABS: AST (GOT) 18 IU/L (2-34); SALICYLATE < 5.0 MG/DL (15-30)
[2017-05-24 23:44] LABS: ACETAMINOPHEN (TYLENOL) < 10 mcg/mL (10-30); ALT (GPT) 12 IU/L (3-49)
[2017-05-24 23:46] VITALS: BP 130/60
[2017-05-25 04:12] VITALS: BP 99/52
[2017-05-25 06:00] LABS: BASOPHIL (%) 0.5 % (0-1); EOSINOPHIL (%) 2.1 % (0-5); EOSINOPHIL COUNT 0.1 K/uL (0-0.3); HEMATOCRIT 29.6 % (36.0-46.0); HEMOGLOBIN 9.2 G/DL (11.9-15.5); IMMATURE GRANULOCYTE (%) 0.3 % (0.0-0.7); LYMPHOCYTE (%) 34.6 % (15-42); LYMPHOCYTE COUNT 2.1 K/uL (1.0-2.8); MCHC 31.1 G/DL (30.0-36.0); MONOCYTE (%) 9.1 % (3-12); MONOCYTE COUNT 0.6 K/uL (0-0.8); NEUTROPHIL (%) 53.4 % (45-76); NEUTROPHIL COUNT 3.2 K/uL (1.8-6.4); PLATELET COUNT 267 K/uL (156-360); RBC DIS.WIDTH-CV 14.3 % (11.8-14.6); RBC DIS.WIDTH-SD 46.8 % (39-53); RED BLOOD COUNT 3.29 M/uL (3.80-5.20); WHITE BLOOD COUNT 6.1 K/uL (4.1-10.2)
[2017-05-25 06:29] LABS: CHLORIDE 110 MEQ/L (99-109); CREATININE 1.6 MG/DL (0.6-1.3); GFR ESTIMATE (CALCULATED) 41 mL/min/; GLUCOSE 88 mg/dL (70-99); POTASSIUM 5.9 MEQ/L (3.7-5.4); SODIUM 140 MEQ/L (136-147); UREA NITROGEN (BUN) 24 mg/dL (9-23)
[2017-05-25 07:50] VITALS: BP 112/57
[2017-05-25 11:12] VITALS: BP 118/54
[2017-05-25 16:04] VITALS: BP 100/55
[2017-05-25 20:11] VITALS: BP 130/58
[2017-05-26 00:26] VITALS: BP 100/55
[2017-05-26 07:51] VITALS: BP 123/56
[2017-05-26] MEDS ORDERED: DOCUSATE SODIU100 MG PO (11:12)
[2017-05-26] MEDS ORDERED: CEFTIN500 MG PO (11:12)
== END 2017-05-26 15:03 | disposition home or self-care (01) | DRG 394 ==
LOC: EME 16:31 → SDC 21:09 → 3EAST 22:57 → 2SOUTH 22:57 → ENRESERV 23:03 → 3EAST 23:41 → ENRESERV 23:41 → 3EAST 05-26 15:03
PROVIDERS: Emergency Medicine; Hospitalist
PROC: 0DC68ZZ Extirpation of Matter from Stomach, Via Natural or Artificial Opening Endoscopic (ICD-10-PCS; principal; 2017-05-24)
DX: T18.2XXA Foreign body in stomach, initial encounter (principal); N39.0 Urinary tract infection, site not specified; F25.9 Schizoaffective disorder, unspecified; N18.3 Chronic kidney disease, stage 3 (moderate); F31.9 Bipolar disorder, unspecified; Z68.41 Body mass index [BMI] 40.0-44.9, adult; K21.9 Gastro-esophageal reflux disease without esophagitis; I12.9 Hypertensive chronic kidney disease with stage 1 through stage 4 chronic kidney disease, or unspecified chronic kidney disease; D64.9 Anemia, unspecified; E66.01 Morbid (severe) obesity due to excess calories; F79 Unspecified intellectual disabilities; F60.3 Borderline personality disorder; E87.5 Hyperkalemia; K59.00 Constipation, unspecified; J45.909 Unspecified asthma, uncomplicated
CPT/HCPCS: 71045; 74018; 74176; 80048; 80076; 81003; 84702; 84999; 85025; 87081; 88300; 94640; 94640 76; 99202; 99281; 99285; G0480; J0330; J1650; J2405; J2710; J3010

== ENCOUNTER 2017-06-15 17:11 | Emergency (ER) | payer OTHER ==
[~2017-06-15] VITALS: Ht 165.1 cm; Wt 119.9 kg
[~2017-06-15 17:11] MED LIST changes: +BIOTIN1000 MICRO PO; +CEFTIN500 MG PO; +DOCUSATE SODIU100 MG PO; +LISINOPRIL40 MG PO; +TAMIFLU30 MG PO; +TESSALON PERLE100 MG PO
[2017-06-15] MEDS ORDERED: MOTRIN600 MG PO (19:26)
[2017-06-15 19:46] VITALS: BP 117/66
== END 2017-06-15 19:57 | disposition home or self-care (01) ==
LOC: EME 17:11
DX: S93.401A Sprain of unspecified ligament of right ankle, initial encounter (principal); W18.30XA Fall on same level, unspecified, initial encounter; Y93.02 Activity, running
CPT/HCPCS: 73610; 99281; 99283

== ENCOUNTER 2017-06-16 11:48 | Emergency (ER) | payer OTHER ==
[~2017-06-16] VITALS: Ht 162.6 cm; Wt 119.4 kg
[~2017-06-16 11:48] MED LIST changes: +MOTRIN600 MG PO
[2017-06-16 12:27] LABS: HEMATOCRIT 31.1 % (36.0-46.0); HEMOGLOBIN 10.2 G/DL (11.9-15.5); MCH 29.7 PG (29.0-34.0); MCHC 32.8 G/DL (30.0-36.0); MCV 90.4 FL (83-99); PLATELET COUNT 243 K/uL (156-360); RBC DIS.WIDTH-CV 15.4 % (11.8-14.6); RBC DIS.WIDTH-SD 50.6 % (39-53); RED BLOOD COUNT 3.44 M/uL (3.80-5.20); WHITE BLOOD COUNT 6.1 K/uL (4.1-10.2)
[2017-06-16 12:36] LABS: CHLORIDE 107 mEq/L (99-109); POTASSIUM 4.7 mEq/L (3.7-5.4); SODIUM 135 mEq/L (136-147)
[2017-06-16 12:38] LABS: GLUCOSE 130 mg/dL (70-99)
[2017-06-16 12:42] LABS: GFR ESTIMATE (CALCULATED) 32 mL/min/
[2017-06-16 12:44] LABS: UREA NITROGEN (BUN) 23 mg/dL (9-23)
[2017-06-16 12:45] LABS: ACETAMINOPHEN (TYLENOL) < 10 mcg/mL (10-30); SALICYLATE < 5.0 MG/DL (15-30)
[2017-06-16 12:54] LABS: QUANTITATIVE HCG < 4.0 MIU/ML
[2017-06-16 13:35] LABS: COCAINE NEGATIVE (150 ng/mL); METHAMPHETAMINE NEGATIVE (500 ng/mL); OPIATES (MORPHINE) NEGATIVE (100 ng/mL); PHENCYCLIDINE NEGATIVE (25 ng/mL); THC CANNABINOIDS NEGATIVE (50 ng/mL)
[2017-06-16 13:36] LABS: AMPHETAMINE NEGATIVE (500 ng/mL); BARBITURATES NEGATIVE (200 ng/mL); BENZODIAZEPINES PRESUMPTIVE POSITIVE (150 ng/mL); BUPRENORPHINE NEGATIVE (10 ng/mL); METHADONE NEGATIVE (200 ng/mL); OXYCODONE NEGATIVE (100 ng/mL); PROPOXYPHENE NEGATIVE (300 ng/mL); TRICYCLIC ANTIDEPRESSANTS PRESUMPTIVE POSITIVE (300 ng/mL)
[2017-06-16 14:46] LABS: BENZODIAZEPINES, URINE SCREEN Negative (200 ng/mL)
[2017-06-16 15:56] VITALS: BP 118/55
== END 2017-06-16 15:50 | disposition left against medical advice (07) ==
LOC: EME 11:48
PROVIDERS: Emergency Medicine
DX: R00.0 Tachycardia, unspecified (principal); F41.9 Anxiety disorder, unspecified; N28.9 Disorder of kidney and ureter, unspecified; R07.89 Other chest pain; J45.909 Unspecified asthma, uncomplicated; K21.9 Gastro-esophageal reflux disease without esophagitis; I10 Essential (primary) hypertension; F31.9 Bipolar disorder, unspecified; Z88.8 Allergy status to other drugs, medicaments and biological substances
CPT/HCPCS: 71046; 80048; 84484; 84702; 84999; 85027; 93005; 99281; 99284; G0480; J7040

== ENCOUNTER 2017-07-03 13:30 | Emergency (ER) | payer OTHER ==
[~2017-07-03] VITALS: Ht 165.1 cm; Wt 123.6 kg
[2017-07-03 14:19] LABS: APPEARANCE SL.HAZY ((CLEAR)); BILIRUBIN NEGATIVE; BLOOD NEGATIVE; COLOR STRAW ((YELLOW)); GLUCOSE (STRIP) NEGATIVE; KETONES NEGATIVE; LEUKOCYTES SMALL; NITRITE NEGATIVE; PROTEIN (STRIP) NEGATIVE; SPECIFIC GRAVITY 1.006 (1.000-1.030); UROBILINOGEN 0.2 MG/DL (0.2-1.0)
[2017-07-03 14:32] LABS: BACTERIA RARE /HPF; EPITHELIAL CELLS 1+ /HPF; HYALINE CASTS 0-5 /LPF; MUCUS TRACE /LPF; RED BLOOD CELLS 0-5 /HPF (0-5); WHITE BLOOD CELLS 0-5 /HPF (0-5)
[2017-07-03 14:36] LABS: BASOPHIL (%) 0.3 % (0-1); EOSINOPHIL (%) 2.6 % (0-5); EOSINOPHIL COUNT 0.2 K/uL (0-0.3); HEMATOCRIT 28.7 % (36.0-46.0); HEMOGLOBIN 9.2 G/DL (11.9-15.5); IMMATURE GRANULOCYTE (%) 0.6 % (0.0-0.7); LYMPHOCYTE (%) 32.2 % (15-42); LYMPHOCYTE COUNT 2.3 K/uL (1.0-2.8); MCH 29.9 PG (29.0-34.0); MCHC 32.1 G/DL (30.0-36.0); MCV 93.2 FL (83-99); MONOCYTE (%) 9.4 % (3-12); MONOCYTE COUNT 0.7 K/uL (0-0.8); NEUTROPHIL (%) 54.9 % (45-76); PLATELET COUNT 280 K/uL (156-360); RBC DIS.WIDTH-CV 15.2 % (11.8-14.6); RBC DIS.WIDTH-SD 51.9 % (39-53); RED BLOOD COUNT 3.08 M/uL (3.80-5.20); WHITE BLOOD COUNT 7.3 K/uL (4.1-10.2)
[2017-07-03 14:48] LABS: CHLORIDE 106 mEq/L (99-109); SODIUM 136 mEq/L (136-147)
[2017-07-03 14:50] LABS: GLUCOSE 93 mg/dL (70-99)
[2017-07-03 14:53] LABS: POTASSIUM 6.2 mEq/L (3.7-5.4)
[2017-07-03 14:54] LABS: CREATININE 1.8 mg/dL (0.6-1.3); GFR ESTIMATE (CALCULATED) 36 mL/min/; UREA NITROGEN (BUN) 32 mg/dL (9-23)
[2017-07-03 15:02] LABS: QUANTITATIVE HCG < 4.0 MIU/ML
[2017-07-03] MEDS ORDERED: CITRATE OF MAG296 ML PO (15:32)
[2017-07-03 15:45] VITALS: BP 155/67
== END 2017-07-03 15:52 | disposition home or self-care (01) ==
LOC: EME 13:30
PROVIDERS: Physician Assistant
DX: K59.00 Constipation, unspecified (principal); K21.9 Gastro-esophageal reflux disease without esophagitis; J45.909 Unspecified asthma, uncomplicated; I12.9 Hypertensive chronic kidney disease with stage 1 through stage 4 chronic kidney disease, or unspecified chronic kidney disease; N18.9 Chronic kidney disease, unspecified; F41.9 Anxiety disorder, unspecified; F31.9 Bipolar disorder, unspecified; G43.909 Migraine, unspecified, not intractable, without status migrainosus; Z88.8 Allergy status to other drugs, medicaments and biological substances
CPT/HCPCS: 71046; 74018; 80048; 81003; 84702; 85025; 99281; 99284

== ENCOUNTER 2017-08-03 11:31 | Observation (INO) | payer OTHER ==
[~2017-08-03] VITALS: Ht 165.1 cm; Wt 122.8 kg
[~2017-08-03 11:31] MED LIST changes: +CITRATE OF MAG296 ML PO
[2017-08-03 12:09] LABS: HEMATOCRIT 32.7 % (36.0-46.0); HEMOGLOBIN 10.5 G/DL (11.9-15.5); MCH 29.1 PG (29.0-34.0); MCHC 32.1 G/DL (30.0-36.0); MCV 90.6 FL (83-99); PLATELET COUNT 313 K/uL (156-360); RBC DIS.WIDTH-CV 13.2 % (11.8-14.6); RBC DIS.WIDTH-SD 43.6 % (39-53); RED BLOOD COUNT 3.61 M/uL (3.80-5.20)
[2017-08-03 12:18] LABS: ALBUMIN 3.7 g/dL (3.2-4.8); CHLORIDE 107 mEq/L (99-109); POTASSIUM 4.4 mEq/L (3.7-5.4); SODIUM 143 mEq/L (136-147)
[2017-08-03 12:20] LABS: GLUCOSE 75 mg/dL (70-99); TOTAL PROTEIN 6.8 g/dL (6.4-8.3)
[2017-08-03 12:22] LABS: TOTAL BILIRUBIN 0.1 mg/dL (0.0-1.0)
[2017-08-03 12:23] LABS: SERUM ETHYL ALCOHOL < 10 mg/dL
[2017-08-03 12:24] LABS: ALKALINE PHOSPHATASE 52 IU/L (3-129); GFR ESTIMATE (CALCULATED) > 59 mL/min/
[2017-08-03 12:25] LABS: AST (GOT) 18 IU/L (2-34); UREA NITROGEN (BUN) 13 mg/dL (9-23)
[2017-08-03 12:27] LABS: ALT (GPT) 11 IU/L (3-49)
[2017-08-03 12:34] LABS: QUANTITATIVE HCG < 4.0 MIU/ML
[2017-08-03 12:41] LABS: AMPHETAMINE NEGATIVE (500 ng/mL); BARBITURATES NEGATIVE (200 ng/mL); BENZODIAZEPINES PRESUMPTIVE POSITIVE (150 ng/mL); BUPRENORPHINE NEGATIVE (10 ng/mL); COCAINE NEGATIVE (150 ng/mL); METHADONE NEGATIVE (200 ng/mL); METHAMPHETAMINE NEGATIVE (500 ng/mL); OPIATES (MORPHINE) NEGATIVE (100 ng/mL); OXYCODONE NEGATIVE (100 ng/mL); PHENCYCLIDINE NEGATIVE (25 ng/mL); PROPOXYPHENE NEGATIVE (300 ng/mL); THC CANNABINOIDS NEGATIVE (50 ng/mL); TRICYCLIC ANTIDEPRESSANTS PRESUMPTIVE POSITIVE (300 ng/mL)
[2017-08-03 13:29] LABS: BENZODIAZEPINES, URINE SCREEN Negative (200 ng/mL)
[2017-08-03 19:00] VITALS: BP 121/71
[2017-08-03 23:28] VITALS: BP 101/56
[2017-08-04 03:43] VITALS: BP 122/57
[2017-08-04 05:51] LABS: HEMOGLOBIN 10.6 G/DL (11.9-15.5); MCH 28.2 PG (29.0-34.0); MCHC 31.2 G/DL (30.0-36.0); MCV 90.4 FL (83-99); PLATELET COUNT 319 K/uL (156-360); RBC DIS.WIDTH-CV 13.3 % (11.8-14.6); RBC DIS.WIDTH-SD 43.5 % (39-53); RED BLOOD COUNT 3.76 M/uL (3.80-5.20); WHITE BLOOD COUNT 8.3 K/uL (4.1-10.2)
[2017-08-04 06:18] LABS: CHLORIDE 110 MEQ/L (99-109); GFR ESTIMATE (CALCULATED) > 59 mL/min/; SODIUM 141 MEQ/L (136-147); UREA NITROGEN (BUN) 12 mg/dL (9-23)
[2017-08-04 06:24] LABS: GLUCOSE 137 mg/dL (70-99)
[2017-08-04 07:57] VITALS: BP 141/74
[2017-08-04 12:01] VITALS: BP 128/85
[2017-08-04 15:34] VITALS: BP 134/74
[2017-08-04] MEDS ORDERED: MAGNESIUM CITR296 M1 PO (15:47)
[2017-08-04] MEDS ORDERED: DELSYM30 MG/5 M1 PO (15:55)
[2017-08-04] MEDS ORDERED: DIMENHYDRINATE50 MG PO (15:56)
[2017-08-04] MEDS ORDERED: ZOFRAN4 MG PO (15:58)
[2017-08-04 19:35] VITALS: BP 135/80
[2017-08-04 23:35] VITALS: BP 120/57
[2017-08-05 03:05] VITALS: BP 121/52
[2017-08-05 08:44] VITALS: BP 130/94
[2017-08-05 19:26] VITALS: BP 116/65
[2017-08-06 03:57] VITALS: BP 152/76
[2017-08-06 07:41] VITALS: BP 131/66
[2017-08-06 12:41] VITALS: BP 140/94
[2017-08-06 12:45] VITALS: BP 131/67
[2017-08-06] MEDS ORDERED: COGENTIN0.5 MG PO (15:19)
[2017-08-06] MEDS ORDERED: RISPERDAL4 MG PO (15:19)
[2017-08-06] MEDS ORDERED: OMEPRAZOLE40 M1 PO (15:19)
[2017-08-06] MEDS ORDERED: FLOVENT DISKUS1 DISK IH (15:19)
[2017-08-06] MEDS ORDERED: SEROQUEL200 MG PO (15:19)
[2017-08-06] MEDS ORDERED: VENLAFAXINE HCL75 M3 PO (15:19)
[2017-08-06] MEDS ORDERED: DEPAKOTE500 MG PO (15:19)
[2017-08-06] MEDS ORDERED: INDERAL60 MG PO (15:19)
== END 2017-08-06 16:10 | disposition home or self-care (01) ==
LOC: EME 11:31 → EDOF 16:58 → 4SOUTH 16:58 → ENRESERV 17:05 → 4SOUTH 18:13
PROVIDERS: Emergency Medicine; Specialist
PROC: 0DC68ZZ Extirpation of Matter from Stomach, Via Natural or Artificial Opening Endoscopic (ICD-10-PCS; principal; 2017-08-03)
DX: T18.2XXA Foreign body in stomach, initial encounter (principal); F25.0 Schizoaffective disorder, bipolar type; F79 Unspecified intellectual disabilities; F60.3 Borderline personality disorder; R45.851 Suicidal ideations; K25.9 Gastric ulcer, unspecified as acute or chronic, without hemorrhage or perforation; I10 Essential (primary) hypertension; K21.9 Gastro-esophageal reflux disease without esophagitis; Z91.5 Personal history of self-harm; R06.6 Hiccough; J45.909 Unspecified asthma, uncomplicated; E66.3 Overweight; Z88.8 Allergy status to other drugs, medicaments and biological substances
CPT/HCPCS: 74018; 74019; 80048; 80053; 80164; 84702; 84999; 85027; 99281; 99285; C9113; G0378; G0480; J0330; J1100; J2405; J2710; J7030; J7643; S0028

== ENCOUNTER 2017-10-19 14:58 | Inpatient (IN) | payer OTHER ==
[~2017-10-19] VITALS: Ht 165.1 cm; Wt 126.9 kg
[~2017-10-19 14:58] MED LIST changes: +MAGNESIUM CITR296 M1 PO
[2017-10-19 15:43] LABS: HEMATOCRIT 38.4 % (36.0-46.0); HEMOGLOBIN 12.1 G/DL (11.9-15.5); MCH 26.1 PG (29.0-34.0); MCHC 31.5 G/DL (30.0-36.0); MCV 82.8 FL (83-99); PLATELET COUNT 264 K/uL (156-360); RBC DIS.WIDTH-CV 14.6 % (11.8-14.6); RBC DIS.WIDTH-SD 43.5 % (39-53); RED BLOOD COUNT 4.64 M/uL (3.80-5.20); WHITE BLOOD COUNT 7.6 K/uL (4.1-10.2)
[2017-10-19 15:52] LABS: APPEARANCE CLEAR ((CLEAR)); BILIRUBIN NEGATIVE; BLOOD SMALL; COLOR YELLOW ((YELLOW)); GLUCOSE (STRIP) NEGATIVE; KETONES NEGATIVE; LEUKOCYTES TRACE; NITRITE NEGATIVE; PROTEIN (STRIP) NEGATIVE; SPECIFIC GRAVITY 1.006 (1.000-1.030); UROBILINOGEN 0.2 MG/DL (0.2-1.0)
[2017-10-19 15:56] LABS: CHLORIDE 106 mEq/L (99-109); POTASSIUM 4.4 mEq/L (3.7-5.4); SODIUM 142 mEq/L (136-147)
[2017-10-19 15:58] LABS: GLUCOSE 80 mg/dL (70-99)
[2017-10-19 15:59] LABS: BACTERIA RARE /HPF; EPITHELIAL CELLS RARE /HPF; MUCUS NONE SEEN /LPF; RED BLOOD CELLS 0-5 /HPF (0-5); WHITE BLOOD CELLS 0-5 /HPF (0-5)
[2017-10-19 16:02] LABS: CREATININE 1.1 mg/dL (0.6-1.3); GFR ESTIMATE (CALCULATED) > 59 mL/min/
[2017-10-19 16:03] LABS: UREA NITROGEN (BUN) 14 mg/dL (9-23)
[2017-10-19 16:11] LABS: QUANTITATIVE HCG < 4.0 MIU/ML
[2017-10-19] MEDS ORDERED: VYVANSE20 MG PO (17:16)
[2017-10-19 20:33] VITALS: BP 148/78
[2017-10-20 03:51] VITALS: BP 114/68
[2017-10-20 05:41] LABS: HEMATOCRIT 36.5 % (36.0-46.0); HEMOGLOBIN 11.1 G/DL (11.9-15.5); MCH 25.6 PG (29.0-34.0); MCHC 30.4 G/DL (30.0-36.0); MCV 84.1 FL (83-99); PLATELET COUNT 246 K/uL (156-360); RBC DIS.WIDTH-CV 14.8 % (11.8-14.6); RBC DIS.WIDTH-SD 45.1 % (39-53); RED BLOOD COUNT 4.34 M/uL (3.80-5.20); WHITE BLOOD COUNT 5.5 K/uL (4.1-10.2)
[2017-10-20 06:06] LABS: CHLORIDE 106 MEQ/L (99-109); GFR ESTIMATE (CALCULATED) > 59 mL/min/; GLUCOSE 80 mg/dL (70-99); POTASSIUM 4.1 MEQ/L (3.7-5.4); SODIUM 139 MEQ/L (136-147); UREA NITROGEN (BUN) 12 mg/dL (9-23)
[2017-10-20 07:35] VITALS: BP 143/70
[2017-10-20 12:39] VITALS: BP 148/87
[2017-10-20 19:15] VITALS: BP 127/84
[2017-10-21 04:58] VITALS: BP 93/50
[2017-10-21 07:07] VITALS: BP 138/66
[2017-10-21 19:15] VITALS: BP 137/82
[2017-10-22 04:00] VITALS: BP 120/72
[2017-10-22 11:22] VITALS: BP 132/76
[2017-10-22 15:41] VITALS: BP 122/77
[2017-10-22 20:00] VITALS: BP 121/70
[2017-10-22 23:46] VITALS: BP 132/68
[2017-10-23 07:23] VITALS: BP 114/69
[2017-10-23 11:35] VITALS: BP 121/63
[2017-10-23] MEDS ORDERED: Pepcid PO (11:39)
[2017-10-24] MEDS ORDERED: PEPCID20 MG PO (07:52)
== END 2017-10-23 16:23 | DRG 394 ==
LOC: EME 14:58 → EDOF 18:05 → ENRESERV 18:28 → 4SOUTH 20:10
PROVIDERS: Hospitalist; Nurse Practitioner Family
DX: T18.2XXA Foreign body in stomach, initial encounter (principal); F25.0 Schizoaffective disorder, bipolar type; F60.3 Borderline personality disorder; T18.4XXA Foreign body in colon, initial encounter; F79 Unspecified intellectual disabilities; I10 Essential (primary) hypertension; K21.9 Gastro-esophageal reflux disease without esophagitis; J45.909 Unspecified asthma, uncomplicated; Z68.42 Body mass index [BMI] 45.0-49.9, adult; K08.89 Other specified disorders of teeth and supporting structures; G43.909 Migraine, unspecified, not intractable, without status migrainosus; E66.01 Morbid (severe) obesity due to excess calories; X83.8XXA Intentional self-harm by other specified means, initial encounter; Y93.89 Activity, other specified; Y92.098 Other place in other non-institutional residence as the place of occurrence of the external cause; Z79.899 Other long term (current) drug therapy
CPT/HCPCS: 74018; 74019; 80048; 81003; 84702; 85027; 99281; 99285; G0378; J1650; J7030; S0028

== ENCOUNTER 2017-10-23 15:40 | Inpatient (IN) | payer OTHER ==
[~2017-10-23] VITALS: Ht 165.1 cm; Wt 126.9 kg
[~2017-10-23 15:40] MED LIST changes: +Pepcid PO
[2017-10-23 16:51] VITALS: BP 120/85
[2017-10-23 17:06] VITALS: BP 128/85
[2017-10-24] MEDS ORDERED: PEPCID20 MG PO (07:52)
[2017-10-24 07:56] VITALS: BP 105/63
[2017-10-24 16:46] VITALS: BP 141/79
[2017-10-25 07:33] VITALS: BP 123/68
[2017-10-25] MEDS ORDERED: EFFEXOR XR37.5 MG PO (12:31)
[2017-10-25] MEDS ORDERED: AMOXICILLIN500 MG PO (12:31)
== END 2017-10-25 12:57 | disposition home or self-care (01) | DRG 885 ==
LOC: 1WEST 15:40
DX: F25.0 Schizoaffective disorder, bipolar type (principal); Z68.42 Body mass index [BMI] 45.0-49.9, adult; F60.3 Borderline personality disorder; F79 Unspecified intellectual disabilities; K04.7 Periapical abscess without sinus; E66.01 Morbid (severe) obesity due to excess calories; Z79.51 Long term (current) use of inhaled steroids
CPT/HCPCS: 94640; 94799; 97150 GO; 97165 GO